=== PATIENT | female | born 1955 | race American Indian/Alaskan Native ===

== ENCOUNTER 2022-10-07 05:20 | Day surgery (SDC) | payer OTHER, BC ==
[2022-10-06 11:52] VITALS: BMI 29.9
[2022-10-07 11:28] VITALS: BP 100/82; PULSE 76; RESP 18; TEMP 98
== END 2022-10-07 11:49 | disposition home or self-care (01) ==
LOC: JASU-ENDO 05:20
PROVIDERS: ATTEND Internal Medicine Gastroenterology
PROC: 0DJD8ZZ Inspection of Lower Intestinal Tract, Via Natural or Artificial Opening Endoscopic (ICD-10-PCS; principal; 2022-10-07 10:00)
DX: Z12.11 Encounter for screening for malignant neoplasm of colon (principal)